=== PATIENT | female | born 1955 ===

== ENCOUNTER 2025-02-06 05:22 | Day surgery (SDC) | payer OTHER ==
[2025-01-31 09:24] LABS: BASO % 1.2 % (0.1-1.2); EOS % 1.7 % (0.7-7.0); HEMATOCRIT 41.1 % (34.1-44.9); HEMOGLOBIN 13.3 g/dL (11.2-15.7); LYMPH # 1.38 (1.18-3.74); LYMPH % 22.9 % (19.3-53.1); MEAN CORPUSCULAR HEMOGLOBIN 28.3 pg (25.6-32.2); MONO # 0.32 (0.24-0.82); MONO % 5.3 % (4.7-12.5); NEUT # 4.14 (1.56-6.13); NEUT % 68.7 % (34.0-71.1); PLATELET COUNT 301 K/uL (163-369); RED CELL DISTRIBUTION WIDTH 14.6 % (11.6-14.4)
[2025-01-31 09:45] LABS: INR 0.99; PARTIAL THROMBOPLASTIN TIME 27.7 SECONDS (22.0-34.0); PROTHROMBIN TIME 10.8 SECONDS (9.0-11.5)
[2025-01-31 10:06] VITALS: BP 131/71
[2025-01-31 10:43] LABS: BILIRUBIN TOTAL 1.12 mg/dL (0.3-1.2); CALCIUM 9.3 mg/dL (8.5-10.1); CREATININE SERUM 1.09 mg/dL (0.55-1.02); GFR 49.92; POTASSIUM 3.42 mEq/L (3.5-5.1)
[2025-01-31 10:52] LABS: URINE APPEARANCE Clear; URINE BILIRRUBIN Negative (NEGATIVE); URINE BLOOD Moderate; URINE COLOR Yellow; URINE KETONE Negative (NEGATIVE); URINE LEUKOCYTE Negative; URINE NITRATE Negative; URINE PROTEIN Negative (NEGATIVE); URINE UROBILINOGEN 0.2 E.U./dl
[2025-01-31 10:58] LABS: URINE BACTERIA 4606.8 uL (0.0-1933); URINE EPITHELIAL CELLS 3.7 uL (0.0-38.8); URINE RBC 11.9 uL (0.0-20.8); URINE WBC 59.5 uL (0.0-23.2)
[2025-01-31 11:07] LABS: URINE GLUCOSE >=1000 MG/DL (NEGATIVE)
[~2025-02-06] VITALS: Ht 167.6 cm; Wt 60.8 kg
[~2025-02-06 05:22] MED LIST: ATORVASTATIN CA10 MG PO; GLIPIZIDE XL2.5 MG PO; XIGDUO XR 5 MG1 EACH PO
[2025-02-06] MEDS ORDERED: CLINDAMYCIN PHOSPHATE 150 MG/ML (900mg) ONE (06:54)
[2025-02-06] MEDS ORDERED: LIDOCAINE HCL 1%/EPINEPHRINE 20ML VIAL IJ ONE (07:03)
[2025-02-06] MEDS ORDERED: BUPIVACAINE HCL/MPF 0.5% 30ML VIAL ONE (07:03)
[2025-02-06] MEDS ORDERED: KETOROLAC TROMETHAMINE 30 MG VIAL ONE (07:03)
== END 2025-02-06 15:00 | disposition home or self-care (01) ==
LOC: CIR.AMB 05:22
PROVIDERS: ATTEND Orthopaedic Surgery
DX: M75.121 Complete rotator cuff tear or rupture of right shoulder, not specified as traumatic (principal); M75.21 Bicipital tendinitis, right shoulder; M24.111 Other articular cartilage disorders, right shoulder; M75.41 Impingement syndrome of right shoulder; Z88.0 Allergy status to penicillin

== ENCOUNTER 2025-02-08 16:16 | Emergency (ER) | payer OTHER ==
[~2025-02-08] VITALS: Ht 167.6 cm; Wt 60.8 kg
[2025-02-08] MEDS ORDERED: LIDOCAINE HCL VISCOUS 20MG/ML BLIST 15ML MM ONE (19:43)
[2025-02-08] MEDS ORDERED: 0.9 % SODIUM CHLORIDE 1 ML IV SCH (21:00)
[2025-02-08 21:29] LABS: BASO % 0.6 % (0.1-1.2); HEMOGLOBIN 12.3 g/dL (11.2-15.7); LYMPH # 1.04 (1.18-3.74); LYMPH % 10.8 % (19.3-53.1); MEAN CORPUSCULAR HEMOGLOBIN 27.9 pg (25.6-32.2); MONO % 5.2 % (4.7-12.5); NEUT # 7.94 (1.56-6.13); NEUT % 82.3 % (34.0-71.1); PLATELET COUNT 232 K/uL (163-369); RED BLOOD COUNT 4.41 M/uL (3.93-5.22); RED CELL DISTRIBUTION WIDTH 14.2 % (11.6-14.4)
[2025-02-08] MEDS ORDERED: METHYLPREDNISOLONE SOD SUCC 40 MG VIAL IV ONE (21:45)
[2025-02-08] MEDS ORDERED: MORPHINE SULFATE 2 MG/ML SYRINGE IV ONE (21:45)
[2025-02-08] MEDS ORDERED: METHYLPREDNISOLONE SOD SUCC 40 MG VIAL ONE (21:46)
[2025-02-08 21:49] LABS: CALCIUM 8.8 mg/dL (8.5-10.1); CREATININE SERUM 0.89 mg/dL (0.55-1.02); GFR 63.07; POTASSIUM 3.44 mEq/L (3.5-5.1)
== END 2025-02-09 05:07 | disposition home or self-care (01) ==
LOC: ER 16:16
PROVIDERS: Emergency Medicine
DX: J02.9 Acute pharyngitis, unspecified (principal); Z88.0 Allergy status to penicillin; R13.19 Other dysphagia; F32.89 Other specified depressive episodes; E78.00 Pure hypercholesterolemia, unspecified
CPT/HCPCS: 36415; 70490; 96365; 96366; 99284; J3490; J7030